=== PATIENT | male | born 1995 | race Caucasian/White ===

== ENCOUNTER 2018-12-26 11:37 | Emergency (ER) | payer SELFPAY ==
[~2018-12-26] VITALS: Ht 188 cm; Wt 63.0 kg
[2018-12-26] MEDS ORDERED: IBUPROFEN 600MG TABLET PO ONE (12:30)
[2018-12-26 12:38] VITALS: BP 114/81
== END 2018-12-26 13:40 | disposition home or self-care (01) ==
LOC: ER 11:37
DX: S92.355A Nondisplaced fracture of fifth metatarsal bone, left foot, initial encounter for closed fracture (principal); W01.0XXA Fall on same level from slipping, tripping and stumbling without subsequent striking against object, initial encounter; Y93.89 Activity, other specified; Y92.018 Other place in single-family (private) house as the place of occurrence of the external cause
CPT/HCPCS: 29515; 73630; 99283

== ENCOUNTER 2019-01-02 09:17 | Emergency (ER) | payer SELFPAY ==
[~2019-01-02] VITALS: Ht 188 cm; Wt 64.0 kg
[2019-01-02] MEDS ORDERED: norco (09:34)
[2019-01-02] MEDS ORDERED: HYDROCODONE/ACETAMINOPHEN 5/325MG TABLET PO ONE (10:00)
[2019-01-02 10:08] VITALS: BP 110/67
== END 2019-01-02 10:09 | disposition home or self-care (01) ==
LOC: ER 09:17
DX: S92.355A Nondisplaced fracture of fifth metatarsal bone, left foot, initial encounter for closed fracture (principal); F12.10 Cannabis abuse, uncomplicated; F17.210 Nicotine dependence, cigarettes, uncomplicated; X58.XXXA Exposure to other specified factors, initial encounter; Y93.89 Activity, other specified; Y92.89 Other specified places as the place of occurrence of the external cause
CPT/HCPCS: 99283

== ENCOUNTER 2019-01-15 08:29 | Emergency (ER) | payer SELFPAY ==
[~2019-01-15] VITALS: Ht 177.8 cm; Wt 70.0 kg
[~2019-01-15 08:29] MED LIST: norco
[2019-01-15 08:42] VITALS: BP 128/75
== END 2019-01-15 18:20 | disposition home or self-care (01) ==
LOC: ER 08:39
DX: S92.352D Displaced fracture of fifth metatarsal bone, left foot, subsequent encounter for fracture with routine healing (principal); F12.10 Cannabis abuse, uncomplicated; X58.XXXD Exposure to other specified factors, subsequent encounter
CPT/HCPCS: 29515; 99283

== ENCOUNTER 2020-01-18 17:30 | Emergency (ER) | payer MEDICAID ==
[~2020-01-18] VITALS: Ht 188 cm; Wt 64.0 kg
[2020-01-18] MEDS ORDERED: HYDROCODONE/ACETAMINOPHEN 5/325MG TABLET PO ONE (20:00)
[2020-01-18 20:28] VITALS: BP 121/77
== END 2020-01-18 20:29 | disposition home or self-care (01) ==
LOC: ER 17:30
DX: S43.492A Other sprain of left shoulder joint, initial encounter (principal); S43.52XA Sprain of left acromioclavicular joint, initial encounter; V43.52XA Car driver injured in collision with other type car in traffic accident, initial encounter; Y93.9 Activity, unspecified; Y92.410 Unspecified street and highway as the place of occurrence of the external cause
CPT/HCPCS: 73030; 99283

== ENCOUNTER 2022-08-11 08:09 | Emergency (ER) | payer OTHER, MEDICAID ==
[~2022-08-11] VITALS: Ht 182.9 cm; Wt 63.6 kg
[2022-08-11 08:16] VITALS: BP 126/81
[2022-08-11] MEDS ORDERED: SODIUM CHLORIDE 0.9% 1,000 ML IV ONE (09:00)
[2022-08-11 09:38] LABS: BASOPHILS % 0.5 % (0.0-2.0); EOSINOPHILS % 1.1 % (0.0-5.0); HEMATOCRIT. 43.3 % (42.0-52.0); HEMOGLOBIN. 14.8 g/dL (14.0-18.0); LYMPHOCYTES % 12.8 % (20.0-50.0); MEAN CORPUSCULAR HEMOGLOBIN 30.4 pg (28.0-32.0); MEAN CORPUSCULAR VOLUME 88.7 fL (80.0-94.0); MONOCYTES % 8.3 % (2.0-8.0); NEUTROPHILS % 77.3 % (40.0-76.0); RED BLOOD CELL COUNT 4.88 mill/uL (4.7-6.1); RED CELL DISTRIBUTION WIDTH 14.4 % (11.6-14.6)
[2022-08-11 09:39] LABS: CHLORIDE 101 mEq/L (98-107)
[2022-08-11 09:40] LABS: CLARITY URINE CLEAR (CLEAR); COLOR URINE DARK YELLOW (YELLOW); KETONES URINE TRACE (NEGATIVE); LEUKOCYTE ESTERASE URINE NEGATIVE (NEGATIVE); NITRITE URINE NEGATIVE (NEGATIVE); OCCULT BLOOD URINE NEGATIVE (NEGATIVE); PH URINE 5.5 (4.5-8.0); PROTEIN URINE TRACE (NEGATIVE); SPECIFIC GRAVITY URINE 1.032 (1.005-1.030)
[2022-08-11 10:33] LABS: PLATELET 184 x1000/uL (130-400)
[2022-08-11] MEDS ORDERED: ONDA4TAB11 PO (10:42)
[2022-08-11] MEDS ORDERED: IBUP-2029 MT (10:42)
== END 2022-08-11 11:30 | disposition home or self-care (01) ==
LOC: ER 08:09
DX: B34.9 Viral infection, unspecified (principal); Z20.822 Contact with and (suspected) exposure to COVID-19
CPT/HCPCS: 36415; 71045; 80053; 81003; 85025; 87426; 96360; 99284; C9803; J7030; Z7610

== ENCOUNTER 2023-05-26 12:17 | Emergency (ER) | payer OTHER, MEDICAID ==
[~2023-05-26] VITALS: Ht 188 cm; Wt 64.0 kg
[~2023-05-26 12:17] MED LIST changes: +IBUP-2029 MT; +ONDA4TAB11 PO
[2023-05-26 12:37] VITALS: O2SAT 98
[2023-05-26 14:29] LABS: BASOPHILS % 0.6 % (0.0-2.0); DIFFERENTIAL COMMENT 0; HEMATOCRIT. 43.9 % (42.0-52.0); LYMPHOCYTES % 24.5 % (20.0-50.0); MEAN CORPUSCULAR HEMOGLOBIN 30.2 pg (28.0-32.0); MEAN CORPUSCULAR HGB CONC 34.3 g/dL (31.0-37.0); MEAN PLATELET VOLUME 10.1 fl (7.4-10.4); MONOCYTES % 9.9 % (2.0-8.0); PLATELET 123 x1000/uL (130-400); RED BLOOD CELL COUNT 4.99 mill/uL (4.7-6.1); WHITE BLOOD COUNT 5.4 x1000/uL (4.5-11.0)
[2023-05-26 14:38] LABS: PROTHROMBIN TIME 11.3 sec (9.6-11.0)
[2023-05-26 14:44] LABS: ALANINE AMINOTRANSFERASE 30 IU/L (10-49); ALBUMIN 4.6 g/dL (3.2-4.8); ASPARTATE AMINOTRANSFERASE 42 IU/L (<34); BILIRUBIN TOTAL 0.5 mg/dL (0.1-1.0); CALCIUM 9.4 mg/dL (8.7-10.4); CARBON DIOXIDE 30 mEq/L (21-32); CHLORIDE 101 mEq/L (98-107); CREATININE 1.1 mg/dL (0.6-1.3); GLUCOSE 94 mg/dL (70-105); POTASSIUM 4.6 mEq/L (3.5-5.1); PROTEIN TOTAL 7.1 g/dL (6.0-8.3); SODIUM 135 mEq/L (136-145); UREA NITROGEN BLOOD 17 mg/dL (9-23)
[2023-05-26 16:04] LABS: CLARITY URINE CLEAR (CLEAR); COLOR URINE YELLOW (YELLOW); GLUCOSE URINE NEGATIVE (NEGATIVE); KETONES URINE TRACE (NEGATIVE); LEUKOCYTE ESTERASE URINE NEGATIVE (NEGATIVE); NITRITE URINE NEGATIVE (NEGATIVE); OCCULT BLOOD URINE NEGATIVE (NEGATIVE); PROTEIN URINE TRACE (NEGATIVE)
[2023-05-26 16:18] LABS: BACTERIA URINE NONE SEEN; RBC URINE 0-2 /hpf (0-2); SQUAMOUS EPITHELIAL CELL URINE 1+ /lpf (RARE/1+)
[2023-05-26] MEDS: KETOROLAC 15MG/ML VIAL IM ONE (16:45)
[2023-05-26] MEDS: ONDANSETRON 4MG ODT PO ONE (16:45)
[2023-05-26 17:32] VITALS: BP 124/86; PULSE 76; RESP 14; TEMP 98.8
== END 2023-05-26 17:33 | disposition home or self-care (01) ==
LOC: ER 12:17
DX: B34.9 Viral infection, unspecified (principal); R11.2 Nausea with vomiting, unspecified; R19.7 Diarrhea, unspecified; F12.90 Cannabis use, unspecified, uncomplicated; Z20.822 Contact with and (suspected) exposure to COVID-19
CPT/HCPCS: 80053; 81003; 83690; 85025; 85610; 36415; 96372; 99283; 87426; Q0162; J1885; Z7610 ×2